=== PATIENT | male | born 1985 | race African-American/Black ===

== ENCOUNTER 2022-04-05 17:49 | Emergency (ER) | payer MEDICAID, SELFPAY ==
[2022-04-05 17:50] VITALS: BP 155/92; PULSE 82; RESP 16; TEMP 36.9; O2SAT 98; BMI 26.4
--- NOTE | 2022-04-05 18:09 | EDS_ITS ---
HPI History of Present Illness Chief Complaint: Dental Informant: patient Onset/Context/Timing Onset: Yesterday Context: Gradual Onset Timing: Continuous Quality: Stabbing Location: Right lower jaw Worsened by: Nothing Relieved by: - (Nothing) Associated Symptoms Assocated Symptom - Dental: jaw swelling and face swelling; Negative for fever, cold sensitivity or hot sensitivity Narrative Narrative: Patient presents with right lower dental pain that began yesterday. Patient states it has gradually gotten worse. Patient describes the pain as stabbing. Patient states nothing makes it worse and nothing makes it better. Patient states he had a prescription for cephalexin left over from a prior infection. Patient states he took a dose yesterday and a dose today. Patient states this has not helped. Patient denies any fevers or chills. Patient denies any difficulty breathing or difficulty swallowing. PFSH PFSH Medical History no medical history no medical history Home Medications cephalexin 500 mg capsule 500 mg PO Q6 #40 CAPSULES 04/05/22 [Rx Last Taken Unknown] naproxen 500 mg tablet 500 mg PO BID PRN #20 tabs 04/05/22 [Rx Last Taken Unknown] Allergy/AdvReac Type Severity Reaction Status Date / Time ampicillin Allergy PT UNSURE Verified 04/05/22 17:52 OF REACTION azithromycin Allergy PT UNSURE Verified 04/05/22 17:52 OF REACTION Surgical History (Updated 04/05/22 @ 18:[address] Freddy Aldrich DO) History of bilateral inguinal herniorrhaphies Social History Smoking Status: Current every day smoker tobacco type: cigarettes ROS ROS ED Constitutional Constitutional ED: Denies chills or fever(s) Eyes Eyes: Denies blurry vision or change in vision ENT ENT ED: Denies rhinorrhea or sore throat Cardiovascular Cardiovascular: Denies chest pain or palpitations Respiratory/Chest Respiratory/Chest: Denies cough or dyspnea Gastrointestinal Gastrointestinal: Denies nausea or vomiting Genitourinary Genitourinary ED: Denies dysuria or hematuria Musculoskeletal Musculoskeletal: Denies back pain or neck pain Integumentary Denies abscess or rash Neurologic Neurologic: Denies headache(s) or weakness Allergic/Immunologic Allergic/Immunologic ED: Denies mouth swelling or urticaria EXAM Physical Exam Const Vital Signs: 04/05/22 17:50 Temperature 98.5 F Temperature Source Temporal Pulse Rate 82 Respiratory Rate 16 Blood Pressure 155/92 H Blood Pressure Mean 113 Pulse Ox 98 Oxygen Delivery Method Room Air Positive well nourished and well developed General Appearance ED: well developed and NAD HEENT HEENT Narrative: There is a dental carry noted over the right lower first molar. There is tenderness to percussion over this tooth. There is some gingival edema around this tooth. There is no fluctuance. There is no discharge or drainage. There is no sublingual edema. There is no evidence of Oswaldo's angina. There is no anterior neck swelling. Mouth ED: Yes oral and palatal mucosa normal, Yes lips normal and Yes tongue normal Mouth: oral and palatal mucosa normal, lips normal and tongue normal Teeth and Gingiva: caries Throat: posterior oropharynx normal Eyes PERRL and EOMs intact bilaterally Neck supple and no JVD General: normal visual inspection; Negative for anterior neck swelling, tenderness or submandibular swelling Neuro oriented x3, CN's II-XII intact bilaterally, moves all extremities, no focal motor deficits and no sensory deficits noted Sensorium / Orientation: alert Motor Exam: strength 5/5 throughout Psych mental status grossly normal Skin no rashes or lesions noted MDM MDM MDM Narrative Medical decision making narrative: Patient was given a prescription for Keflex. Patient was instructed to take this 4 times daily. Patient was also given a prescription for Naprosyn. Patient was instructed to follow-up with his dentist in 3 to 5 days. Patient understood and was agreeable with the plan. All questions were answered. Discharge Plan Triage Chief Complaint: Dental ED Provider: Freddy Aldrich Dx/Rx/DC Orders Clinical Impression: Infected dental caries Instructions: ED Dental Abscess Prescriptions: New cephalexin [cephalexin] 500 mg capsule 500 mg PO Q6 Qty: 40 0RF naproxen 500 mg tablet 500 mg PO BID PRN Qty: 20 0RF Primary Care Provider: Danita Doss NP Referrals: Danita Doss NP, [facility] [employer] [Primary Care Provider] - 5-7 Days Dentist,Your [STAFF PHYSICIAN] - 3-5 Days Disposition Disposition: Home, Self Care
[2022-04-05] MEDS: Naproxen 250 MG Tablet 500 MG PO (18:41)
[2022-04-05] MEDS: Cephalexin 500 MG Capsule PO (18:41)
[2022-04-05 18:44] VITALS: BP 142/79; PULSE 88; RESP 15; O2SAT 99
== END 2022-04-05 18:45 | disposition home or self-care (01) ==
LOC: ED 18:25
PROVIDERS: Emergency Provider Emergency Medicine; PCP Nurse Practitioner Family; Visit Provider Emergency Medicine
DX: K04.7 Periapical abscess without sinus (principal); K02.9 Dental caries, unspecified; F17.210 Nicotine dependence, cigarettes, uncomplicated
CPT/HCPCS: 99283